=== PATIENT | female | born 1980 ===

== ENCOUNTER 2020-11-04 12:04 | Inpatient (IN) | payer SELFPAY ==
[2020-11-04] MEDS ORDERED: LACTATED RINGERS 1,000 ML IV ONE (12:57)
[2020-11-04 14:25] LABS: Bacteria,Urine 1+ /HPF (Negative); Bilirubin,Urine NEG (Negative); Blood,Urine SM (Negative); Color,Urine Yellow (Yellow); Protein,Urine <15 mg/dL mg/dL (Negative); Urobilinogen,Urine < 2.0 mg/dL (<2.0)
[2020-11-04] MEDS ORDERED: METOCLOPRAMIDE 10 MG/2 ML INJ IV ONE (16:20)
[2020-11-04] MEDS ORDERED: BICITRA ORAL LIQD 30ML PO ONE (16:20)
[2020-11-04] MEDS ORDERED: FAMOTIDINE 20 MG/2 ML INJ IV ONE (16:20)
[2020-11-04] MEDS ORDERED: LACTATED RINGERS 1,000 ML ONE (16:20)
--- NOTE | 2020-11-04 16:29 | History and Physical Report ---
History of Present Illness Date of examination: 11/04/20 Date of admission: 11/04/20 Chief complaint: "I haven't felt my baby move since Wednesday" History of present illness: 39 y/o @ 36.2 wks presents with c/o decreased FM x several days. Pt denies VB or LOF. She initiated her pnc @ [facility] @ 8 wks gestation. She was co mananged`by [facility] for AMA and abnormal AFP trisomy 18. Pt reports previous c/s for failure to progress and distress in 2013. Pt is requesting a BTL. Her consent for a BTL was signed on 09/24/20. GBS is neg. No pnr are available at this time. Past History Past Medical History: other (AMA, pos AFP trisomy 18) Past Surgical History: section Family/Genetic History: cancer Social history: no significant social history, full code - Obstetrical History Expected Date of Delivery: 11/30/20 Actual Gestation: 36 Week(s) 2 Day(s) : 5 Para: 4 Hx # Term Pregnancies: 2 Number of Pregnancies: 1 Spontaneous Abortions: 0 Induced : 0 Number of Living Children: 4 Medications and Allergies Allergies Allergy/AdvReac Type Severity Reaction Status Date / Time No Known Allergies Allergy Verified 11/04/20 12:57 Active Meds: Active Medications Citric Acid/Sodium Citrate (Bicitra Oral Liqd 30ml) 30 ml PO ONCE ONE Stop: 11/04/20 16:21 Famotidine (Famotidine 20 Mg/2 Ml Inj) 20 mg IV ONCE ONE Stop: 11/04/20 16:21 Lactated Ringer's (Lactated Ringers) 1,000 mls @ 2,250 mls/hr IV PREOP CALLIE Stop: 11/05/20 16:57 Oxytocin/Sodium Chloride (Pitocin/Ns 30 Unit/500ml) 30 units in 500 mls @ 0 mls/hr IV TITR CALLIE; Protocol Cefazolin Sodium (Ancef/Sterile Water 2 Gm/20 Ml) 2 gm in 20 mls @ 80 mls/hr IV PREOP NR; Protocol Metoclopramide HCl (Metoclopramide 10 Mg/2 Ml Inj) 10 mg IV ONCE ONE Stop: 11/04/20 16:21 Review of Systems All systems: negative Eyes: deferred Ears, nose, mouth and throat: deferred Breasts: normal Genitourinary: normal appearance Rectal Exam: deferred - Vital Signs Vital signs: Vital Signs Pulse Pulse Ox 117 H 97 11/04/20 13:00 11/04/20 13:00 Temp Pulse Resp BP Pulse Ox 99.2 F 108 H 20 143/84 79 L 11/04/20 13:05 11/04/20 13:34 11/04/20 13:05 11/04/20 13:22 11/04/20 13:34 - Physical Exam Breasts: Positive: normal Abdomen: Positive: normal appearance, soft, normal bowel sounds Genitourinary (Female): Positive: normal external genitalia, normal perenium Vulva: both: normal Vagina: Positive: normal moisture Uterus: Positive: enlarged, normal contour, other (gravid) Adnexa: both: normal Anus/Rectum: Positive: normal perianal skin Extremities: Positive: normal - Obstetrical FHR: other (IUFD) Results All other labs normal. Assessment and Plan A: IUP@ 36.2 wks IUFD AMA Pos AFP trisomy 18 Hx of c/s GBS unknown Requesting BTL P: Admit to L&D for repeat c/s Notify NICU Obtain MR from clinic MD consulted
[2020-11-04] MEDS ORDERED: LACTATED RINGERS 1,000 ML IV SCH (16:30)
[2020-11-04] MEDS ORDERED: ACETAMINOPHEN 325 MG TAB PO PRN (16:33)
[2020-11-04] MEDS ORDERED: BUTORPHANOL 2 MG/1 ML INJ IV PRN ×2 (16:33)
[2020-11-04] MEDS ORDERED: fentaNYL 100 MCG/2 ML INJ IV PRN (16:33)
[2020-11-04] MEDS ORDERED: ceFAZolin/Water 2 GM/20 ML 2 GM/20 ML SYRINGE IV NR (17:00)
[2020-11-04 18:17] LABS: Basophils # (Auto) 0.1 K/mm3 (0.0-0.1); Basophils % (Auto) 0.8 % (0.0-1.8); Eosinophils # (Auto) 0.2 K/mm3 (0.0-0.4); Eosinophils % (Auto) 1.9 % (0.0-4.3); Hematocrit 42.2 % (30.3-42.9); Hemoglobin 14.1 gm/dl (10.1-14.3); Lymphocytes # (Auto) 1.7 K/mm3 (1.2-5.4); Lymphocytes % (Auto) 19.2 % (13.4-35.0); Mean Corpuscular HGB Conc 34 % (30-34); Mean Corpuscular Volume 91 fl (79-97); Monocytes # (Auto) 0.7 K/mm3 (0.0-0.8); Monocytes % (Auto) 8.2 % (0.0-7.3); Platelet Count 234 K/mm3 (140-440); Red Blood Count 4.62 M/mm3 (3.65-5.03); Red Cell Distribution Width 13.6 % (13.2-15.2)
--- NOTE | 2020-11-04 20:04 | Event Note ---
Date: 11/04/20 I received sign out from the morning team for repeat c/section for IUFD at 36.2wks. I went to get consents and pt and her were concerned as to why she needed a c/section. pt states she desired to no future fertility and her records show valid tubal papers. Pt declined c/section and pelvic 3-//-2 with slight yellow ?mec mucoid discharge and membranes intact. Records also show pt desires TOLAC. Abdomen soft. Will give low dose pitocin. If induction fails, then repeat section to be done. Will place toco monitor and d elay repeat c/section at this time.
[2020-11-04] MEDS: OXYTOCIN DRIP 30 UNITS/500 ML BAG IV SCH (23:45)
--- NOTE | 2020-11-05 05:13 | Event Note ---
Date: 11/05/20 pt evaluated and feeling pain. Pelvic /-2; AROM done and same with brown fluid more like old blood than meconium stained. Pt with irregular ctx and pitocin at 6mu/min. Pt offered IV pain med and same accepted and nurse to give nubain for pain relief. expect vag delivery.
[2020-11-05] MEDS ORDERED: NalbUPHINE 10 MG/1 ML INJ IV PRN (05:18)
[2020-11-05] MEDS ORDERED: MINERAL OIL 30 ML ORAL LIQD ONE (06:51)
[2020-11-05] MEDS: OXYTOCIN DRIP 30 UNITS/500 ML BAG IV SCH ×2 (06:59→07:26)
--- NOTE | 2020-11-05 08:15 | Procedure Note ---
OB Delivery Note - Delivery Date of Delivery: 11/05/20 Surgeon: ISHA CONNORS Estimated blood loss: 200cc - Vaginal Delivery presentation: vertex Delivery position: OA Delivery induction: AROM Delivery augmentation: pitocin Route of delivery: Delivery placenta: spontaneous Episiotomy: none Delivery laceration: none Anesthesia: intravenous Delivery comments: SAVD of term demise, female , vertex, large amount of dark brown fluid. Placenta delivered spontaneously and same complete. Bimanual done and fundus firm. pt sustained no laceration. Cause of unknown. APGARS 0/0. - Infant A at 1 minute: 0 (wt 2055g) at 5 minutes: 0 Infant Gender: Female
--- NOTE | 2020-11-05 09:03 | Ultrasound Report ---
US OB limited INDICATION: difficult to find fht's. TECHNIQUE: Transabdominal. COMPARISON: None available. FINDINGS: There is a single intrauterine . Heart Rate: No heart tones identified. Position: cephalic. IMPRESSION: 1. No heart tones. Signer Name: Doug Miranda MD Signed: 11/04/2020 2:00 PM Workstation Name: [id number]
[2020-11-05] MEDS ORDERED: LANOLIN/ZINC/DIMETHICONE (LANSINOH) 7 GM TP PRN (12:49)
[2020-11-05] MEDS ORDERED: PROMETHAZINE 25 MG RECT SUPP PR PRN (12:49)
[2020-11-05] MEDS ORDERED: MAGNESIUM HYDROXIDE (MOM) ORAL LIQD UDC PO PRN (12:49)
[2020-11-05] MEDS ORDERED: ACETAMINOPHEN 325 MG TAB PO PRN (12:49)
[2020-11-05] MEDS ORDERED: oxyCODONE /ACETAMINOPHEN 5-325MG TAB PO PRN (12:49)
[2020-11-05] MEDS ORDERED: WITCH HAZEL/ GLYCERIN PAD TP PRN (12:49)
[2020-11-05] MEDS ORDERED: diphenhydrAMINE 25 MG CAP PO PRN (12:49)
[2020-11-05] MEDS ORDERED: ONDANSETRON 4 MG/2 ML INJ IV PRN (12:49)
[2020-11-05] MEDS ORDERED: PROMETHAZINE 25 MG TAB PO PRN (12:49)
[2020-11-05] MEDS: IBUPROFEN 600 MG TAB PO SCH (19:30)
[2020-11-06] MEDS: IBUPROFEN 600 MG TAB PO SCH (01:00)
[2020-11-06 01:11] LABS: Hematocrit 34.5 % (30.3-42.9); Hemoglobin 11.9 gm/dl (10.1-14.3)
--- NOTE | 2020-11-06 10:24 | Progress Note ---
Assessment and Plan A: s/p with IUFD p: D/C home today Subjective - Subjective Date of service: 11/06/20 Principal diagnosis: s/p IUFD Interval history: 39 y/o @ 36.2 wks presents with c/o decreased FM x several days. Pt denies VB or LOF. She initiated her pnc @ [facility] @ 8 wks gestation. She was co mananged`by [facility] for AMA and abnormal AFP trisomy 18. Pt reports previous c/s for failure to progress and distress in 2013. Pt is requesting a BTL. Her consent for a BTL was signed on 09/24/20. GBS is neg. No pnr are available at this time. Patient reports: appetite normal, voiding normally, pain well controlled, ambulating normally [place]: Objective - Vital Signs Latest vital signs: Vital Signs Temp Pulse Resp BP BP Pulse Ox Pulse Ox 11/06/20 08:51 100 11/06/20 07:39 97.7 F 84 18 101/61 97 11/06/20 04:45 122/63 11/06/20 04:32 97.7 F 69 20 92/40 100 11/05/20 23:27 98.4 F 80 20 104/64 96 11/05/20 19:50 98.1 F 98 H 20 101/64 96 11/05/20 19:30 98 11/05/20 16:45 97.7 F 83 20 109/70 97 11/05/20 12:45 98.2 F 106 H 16 107/68 98 11/05/20 10:25 98.9 F 93 H 20 120/70 98 Intake and Output 11/05/20 11/06/20 11/06/20 22:59 06:59 14:59 Intake Total 320 120 120 Balance 320 120 120 Intake: Oral 320 120 120 Other: Total, Intake Amount 200 120 120 # Voids Void 1 1 1 - Exam Breasts: Present: normal Abdomen: Present: normal appearance, soft, normal bowel sounds Vulva: both: normal Uterus: Present: normal, firm, fundal height below umbilicus Extremities: Present: normal
--- NOTE | 2020-11-06 10:26 | Discharge Summary ---
Providers - Providers Date of Admission: 11/04/20 12:05 Date of discharge: 11/06/20 Attending physician: KRISTOPHER COREAS MD Primary care physician: KRISTOPHER COREAS MD Hospitalization Reason for admission: active labor, IUFD, IUP at term Delivery: Episiotomy: none Laceration: none Other procedures: none complications: none Discharge diagnosis: IUP at term delivered baby: female Hospital course: Pt was admitted to [facility] with c/o decreased FM times several days. She had a IUFD w/o pp complications. See H&P, delivery summary, and pp notes. Condition at discharge: Stable Disposition: 01 HOME / SELF CARE / HOMELESS Plan - Discharge Medications Prescriptions: Ibuprofen [Motrin 600 MG tab] 600 mg PO Q6H PRN #30 tablet PRN Reason: Menstrual Cramps - Provider Discharge Summary Additional instructions: [] Smoking cessation referral if applicable(refer to patient education folder for contact #) [] Refer to [facility] Booklet Call your doctor immediately for: * Fever > 100.5 * Heavy vaginal bleeding ( >1 pad per hour) * Severe persistent headache * Shortness of breath * Reddened, hot, painful area to leg or breast * Drainage or odor from incision. * Keep incision clean and dry at all times and follow doctor's instructions regarding bathing/showering - Follow up plan Follow up: KRISTOPHER COREAS MD [Primary Care Provider] - 6 Weeks
[2020-11-06 11:46] VITALS: BP 117/68
== END 2020-11-06 11:48 | disposition home or self-care (01) | DRG 805 ==
LOC: TRG 12:04 → EDBD 12:04 → APU 12:05 → TRG 17:07 → LD 18:14 → OB 11-05 10:03
PROVIDERS: ADMIT Obstetrics & Gynecology; ATTEND Obstetrics & Gynecology
PROC: 10E0XZZ Delivery of Products of Conception, External Approach (ICD-10-PCS; principal; 2020-11-05)
PROC: 10907ZC Drainage of Amniotic Fluid, Therapeutic from Products of Conception, Via Natural or Artificial Opening (ICD-10-PCS; 2020-11-05)
DX: O36.4XX0 Maternal care for intrauterine death, not applicable or unspecified (principal); O60.14X0 Preterm labor third trimester with preterm delivery third trimester, not applicable or unspecified; Z37.1 Single stillbirth; Z3A.36 36 weeks gestation of pregnancy; O09.523 Supervision of elderly multigravida, third trimester; Z20.822 Contact with and (suspected) exposure to COVID-19
CPT/HCPCS: 36415; 76815; 76819; 81001; 85014; 85018; 85025; 86850; 86900; 86901; 88307; G0378; J2590; J3010; J7120; U0003